=== PATIENT | male | born 1985 | race Caucasian/White ===

== ENCOUNTER 2016-07-21 13:13 | Emergency (ER) | payer BC ==
[~2016-07-21] VITALS: Ht 175.3 cm; Wt 83.9 kg
--- NOTE | 2016-07-21 13:43 | ER.PDOC ---
General Chief Complaint: Headache Stated Complaint: BLURRY VISION, HEADACHE Time seen by MD: 13:30 Source: patient History of Present Illness Initial Comments headache, right sided for about an hour. researched on the internet and was worried about glaucoma. Timing/Duration: 1-3 hours Severity/Quality: moderate Prior Headaches/Recent Trauma: no recent headache/trauma Associated Symptoms: vision changes (in right eye) Allergies: Coded Allergies: No Known Allergies (Unverified , 07/21/16) Past Medical History Medical History: no pertinent history Surgical History: no surgical history Social History Smoking: quit less than 1 year Alcohol Use: rarely Drug Use: none Review of Systems Constitutional: no symptoms reported Eyes: see HPI Ears, Nose, Mouth, Throat: no symptoms reported Respiratory: no symptoms reported Cardiovascular: no symptoms reported Gastrointestinal: no symptoms reported Genitourinary: no symptoms reported Musculoskeletal: no symptoms reported Skin: no symptoms reported Physical Exam General Appearance: No Apparent Distress, WD/WN Head/Eyes: eyes nml inspection (not red at all. no pain with light exam.) ENT: nml ENT inspection Neck: nml inspection Cardiovascular: Normal Peripheral Pulses, Regular Rate, Rhythm Respiratory: chest non-tender Gastrointestinal: Normal Bowel Sounds, No Organomegaly Back: Normal Inspection Extremities: Normal Range of Motion, Non-Tender Psychiatric: Alert Coordination/Gait: Normal Finger to Nose, Normal Gait, Negative Romberg's Sign Motor/Sensory: No Motor Deficit, No Sensory Deficit, No Pronator Drift Skin: Warm/Dry, Normal Color Departure Time of Disposition: 14:34 Disposition: 01 HOME, SELF-CARE Impression: Primary Impression: Headache Condition: Improved Referrals: PCP,UNKNOWN (PCP) PRIMARY CARE PROVIDER PING BRADLEY MD Jul 21, 2016 13:43
--- NOTE | 2016-07-21 13:50 | NUR ---
CT PT TAKEN TO CT
--- NOTE | 2016-07-21 13:56 | NUR ---
CT PT BACK FROM CT
--- NOTE | 2016-07-21 14:31 | DIREP ---
PROCEDURE:CT HEAD OR BRAIN W/O CONTRAST COMPARISON:None. INDICATIONS:headache TECHNIQUE:CT images were created without intravenous contrast. FINDINGS: VENTRICLES:Unremarkable size and morphology. CEREBRUM:No apparent mass or mass effect. No acute intracranial hemorrhage or abnormal extra-axial fluid collections. No CT evidence to suggest acute large vascular territorial ischemia. CEREBELLUM:Normal. BRAINSTEM:Normal. SKULL:Normal. SINUSES:Mild mucosal thickening within a left posterior ethmoid air cell. OTHER:Negative. CONCLUSION: 1. No acute intracranial abnormality. 2. Relatively mild ethmoid sinus disease, predominantly involving a single left posterior ethmoid air cell. Dictated by: Elier Almazan M.D. On 07/21/2016 at 02:26 PM
[2016-07-21] MEDS ORDERED: MOTRIN PO STA (14:35)
[2016-07-21] MEDS ORDERED: MOTRIN ONE (14:42)
[2016-07-21 14:48] VITALS: BP 162/89
--- NOTE | 2016-07-21 14:49 | NUR ---
Discharge: Pt discharge instructions with rx *1 given. pt voiced understanding. Ambulated out of ED.
== END 2016-07-21 14:49 | disposition home or self-care (01) ==
LOC: ER 13:13
DX: R51 Headache (principal); Z87.891 Personal history of nicotine dependence
CPT/HCPCS: 70450; 99284